=== PATIENT | male | born 1990 | race Caucasian/White ===

== ENCOUNTER 2023-03-16 13:51 | Emergency (ER) | payer OTHER, SELFPAY ==
[2023-03-16 14:00] VITALS: BP 123/73; PULSE 93; RESP 16; TEMP 36.3; O2SAT 97; BMI 25.1
--- NOTE | 2023-03-16 16:15 | ED_ITS ---
HPI - General Adult General Chief complaint: Laceration/Wound Stated complaint: Lac L pinky Time Seen by Provider: 03/16/23 15:58 Source: patient Mode of arrival: ambulatory Limitations: no limitations History of Present Illness HPI narrative: 33-year-old male coming in today with a laceration to his left pinky finger that occurred when he was cutting meat with a knife. Occurred approximally 2 hours ago. Denies any other injury. Unsure of his last tetanus shot. Related Data Home Medications Medication Instructions Recorded Confirmed No Known Home Medications 03/16/23 03/16/23 Allergies Allergy/AdvReac Type Severity Reaction Status Date / Time No Known Drug Allergies Allergy Verified 03/16/23 13:59 Review of Systems Status of ROS: Reports: 6 or more systems reviewed and unremarkable except as noted in History and below Exam Narrative: Exam Narrative: Well-nourished well-developed patient in no acute distress. Alert and oriented. Answers questions appropriately. Mood and affect are appropriate. Thoughts are goal oriented and rational. No tangential or magical thinking noted. Patient speaks in full sentences without needing to catch his breath. HEENT: Normocephalic atraumatic. Pupils are equally round reactive to light. Extraocular muscles are intact. Conjunctivae are moist without any icterus no mary alice. Moist mucous membranes. Extremities: Patient has approximately a 1 and 1/2 cm laceration to the dorsal surface of the base of the left 5th digit. Laceration extends through the skin is not penetrate through the subcutaneous tissue. Skin: Well perfused without any obvious rashes. Const: Vital Signs, click to edit/add: Vital Signs - 24 hr 03/16/23 14:00 Temperature 97.4 F L Pulse Rate [Right Pulse Oximeter] 93 Respiratory Rate 16 Blood Pressure [Ri ght Upper Arm] 123/73 Pulse Oximetry 97 Oxygen Delivery Me thod Room Air Course Course Hospital Course: Area of laceration was anesthetized with lidocaine and wound was clean with again cleansed and explored. Four sutures with 4 0 Ethilon were placed without difficulty and good skin approximation. Vital Signs Vital signs: Initial Vital Signs Temperature 97.4 F L 03/16/23 14:00 Temperature Source Temporal Artery Scan 03/16/23 14:00 Pulse Rate 93 03/16/23 14:00 Pulse Rhythm Regular 03/16/23 14:00 Respiratory Rate 16 03/16/23 14:00 Blood Pressure 123/73 03/16/23 14:00 Blood Pressure Mean 89 03/16/23 14:00 Blood Pressure Position Sitting 03/16/23 14:00 Pulse Oximetry 97 03/16/23 14:00 Oxygen Delivery Method Room Air 03/16/23 14:00 Vital Signs Temperature 97.4 F L 03/16/23 14:00 Pulse Rate 93 03/16/23 14:00 Respiratory Rate 16 03/16/23 14:00 Blood Pressure 123/73 03/16/23 14:00 Pulse Oximetry 97 03/16/23 14:00 Oxygen Delivery Method Room Air 03/16/23 14:00 Temperature 97.4 F L 03/16/23 14:00 Pulse Rate 93 03/16/23 14:00 Respiratory Rate 16 03/16/23 14:00 Blood Pressure 123/73 03/16/23 14:00 Pulse Oximetry 97 03/16/23 14:00 Oxygen Delivery Method Room Air 03/16/23 14:00 Medical Decision Making MDM Narrative Medical decision making narrative: 33-year-old male laceration to the 5th digit treated per above. We discussed wound hygiene, signs and symptoms of infections, reasons to return for follow-up and suture removal in approximately 1 week. Patient had no other questions Discharge Plan Discharge Clinical Impression: Laceration Patient Disposition: Home, Self-Care Condition: Improved Additional Instructions: Keep finger clean and dry. Okay to shower but do not soak the finger such as swimming taking bath or doing the dishes. Suture should be removed with your primary care provider in approximately 1 week. Return to the ER if you develop redness of the finger or draining of pus. Prescriptions: No Action No Known Home Medications Stand Alone Forms: [facility] Info Instructions
[2023-03-16] MEDS: TETANUS/DIPHTH/PERTUSSIS 0.5 ML SYRINGE IM (16:53)
== END 2023-03-16 16:59 | disposition home or self-care (01) ==
LOC: ED 16:29
PROVIDERS: Emergency Provider Family Medicine
DX: S61.217A Laceration without foreign body of left little finger without damage to nail, initial encounter (principal); W26.0XXA Contact with knife, initial encounter
CPT/HCPCS: 12001; 90471; 90715; 99283; 99284

== ENCOUNTER 2023-06-12 00:49 | Emergency (ER) | payer MEDICAID, SELFPAY ==
[2023-06-12 01:12] VITALS: BP 139/87; PULSE 76; RESP 16; TEMP 36.3; O2SAT 95; BMI 25.2
--- NOTE | 2023-06-12 02:10 | CRLHL7_ITS ---
For Patients: As a result of the Cures Act, medical imaging exams and procedure reports are released immediately into your electronic medical record. You may view this report before your referring provider. If you have questions, please contact your health care provider. INDICATION: Cough and chest pain. TECHNIQUE: Chest 2 views. COMPARISON: None. FINDINGS: Cardiovascular and mediastinum: Heart size and vasculature are normal in caliber and appearance. Lungs and pleural spaces: Lungs are clear. No sign of infiltrate or mass. No sign of pleural effusion. No pneumothorax. Bones and soft tissues: No significant findings. IMPRESSION: No acute or significant findings. Dictated by Devyn Matos MD @ 06/12/2023 2:30:19 AM (Electronically Signed)
--- NOTE | 2023-06-12 02:17 | ED_ITS ---
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 Present upon awakening, located in the left anterior deeper chest area. Accompanied by a feeling of racing heart though none has been documented on vital signs here. Tightness. Worse with laying on left side. Nonexertional, constant. It is slightly worse with palpation and with taking a deep breath. No history of DVT or PE. No history of anticoagulant use. No shortness of breath, nausea, trauma. No changes to the skin, itching or burning. Has not tried taking any medication to help with his symptoms. No neurological changes. No prior history of similar symptoms. On specific questioning, does admit to increased stress and wonders if it could be related. Past medical history benign per his report. No major long-term health problems. Nonsmoker, no allergies. ROS notable for the chest symptoms as described above only, otherwise denies times 12 systems. Related Data Previous Rx's Medication Instructions Recorded hydroxyzine pamoate 25 mg capsule 25 mg PO BID PRN anxiety #30 caps 06/12/23 (Vistaril) Allergies Allergy/AdvReac Type Severity Reaction Status Date / Time No Known Drug Allergies Allergy Verified 03/16/23 13:59 [facility] Social History Non-prescribed substance use: denies use Exam Const: Vital Signs, click to edit/add: Vital Signs - 24 hr 06/12/23 01:12 Temperature 97.4 F L Pulse Rate [Left P ulse Oximeter] 76 Respiratory Rate 16 Blood Pressure [Le ft Upper Arm] 139/87 Pulse Oximetry 95 Oxygen Delivery Me thod Room Air Documenting provider has reviewed patient's vital signs: yes General appearance: well kempt Other: Mildly anxious but answers questions appropriately. No distress. HENMT: Common normals: normocephalic and head/scalp atraumatic Head and scalp: normocephalic and atraumatic Face and sinus: normal facial exam Mouth: oral and palatal mucosa normal Throat: posterior oropharynx normal Eye: Common normals: conjunctivae normal General eye: normal appearance of both eyes Conjunctiva: conjunctiva(e) normal Neck & C-Spine: Common normals: full ROM and no lymphadenopathy Chest: Common normals: inspection of chest normal Other: Tenderness can somewhat be reproduced with palpation of 2nd and 3rd sternal costal joints. Resp: Common normals: normal respiratory effort and clear to auscultation bilaterally Effort & inspection: able to speak in complete sentences Auscultation: clear to auscultation bilaterally Cardio: Common normals: regular rate, regular rhythm, S1 normal heart sound and no murmurs Rate: regular rate Rhythm: regular rhythm Heart sounds: S1 normal GI: Common normals: Normal to inspection, nondistended, normoactive bowel sounds present, soft to palpation, non-tender, no hepatosplenomegaly and no masses Palpation: soft and no hepatosplenomegaly : Common normals: no CVA tenderness Bladder/kidney exam: no CVA tenderness Back & Pelvis: Common normals: no CVA tenderness and thoracic and lumbar spine normal to inspection Extremity: Common normals: normal to inspection and no pedal edema Neuro: Speech: speech normal Gait (neuro): normal gait Motor exam: no movement abnormalities noted Psych: Appearance: well kempt Attitude: engaged Insight: insight good Judgement: judgment good Skin: Common normals: no rashes or lesions noted General skin exam: no rashes or lesions noted Course Course ED Course: Vital signs reviewed, stable. Blood pressure even improves during his time in the ED. Chest pain is somewhat reproducible with palpation though not entirely. Suspect musculoskeletal etiology. Recommend Toradol 15 mg IV x1, Vistaril 25 mg p.o. x1. Basic labs including troponin, EKG, chest x-ray, D-dimer, metabolic panel and CBC with CRP. Await findings. Unlikely to need serial troponins due to duration of symptoms being longer than 6 hours. Reevaluation(s) Time of Reevaluation #1: 02:55 Reevaluation #1: Symptoms completely resolved with Toradol and Vistaril. All lab findings and x- ray findings discussed with patient. Suspect musculoskeletal versus anxiety cause. He was reassured by the findings. All questions answered. Discussed [id number] Tylenol and ibuprofen as needed for discomfort. I do think anxiety is a factor and he was agreeable to a trial of Vistaril at home 25 mg up to b.i.d. p.r.n.. He will follow-up with his primary care provider if typical anginal symptoms exist which were discussed. Utility Operator used. If he is feeling more anxious and is having symptoms twice weekly or more, he should follow up with his primary care doctor to discuss more long-term management of this condition as well. Vital Signs Vital signs: Initial Vital Signs Temperature 97.4 F L 06/12/23 01:12 Temperature Source Temporal Artery Scan 06/12/23 01:12 Pulse Rate 76 06/12/23 01:12 Pulse Rhythm Regular 06/12/23 01:12 Respiratory Rate 16 06/12/23 01:12 Blood Pressure 139/87 06/12/23 01:12 Blood Pressure Mean 104 06/12/23 01:12 Blood Pressure Position Semi-Fowlers 06/12/23 01:12 Pulse Oximetry 95 06/12/23 01:12 Oxygen Delivery Method Room Air 06/12/23 01:12 Vital Signs Temperature 97.4 F L 06/12/23 01:12 Pulse Rate 76 06/12/23 01:12 Respiratory Rate 16 06/12/23 01:12 Blood Pressure 139/87 06/12/23 01:12 Pulse Oximetry 95 06/12/23 01:12 Oxygen Delivery Method Room Air 06/12/23 01:12 Temperature 97.4 F L 06/12/23 01:12 Pulse Rate 76 06/12/23 01:12 Respiratory Rate 16 06/12/23 01:12 Blood Pressure 139/87 06/12/23 01:12 Pulse Oximetry 95 06/12/23 01:12 Oxygen Delivery Method Room Air 06/12/23 01:12 Medical Decision Making Lab Data Lab results reviewed: Yes I reviewed the patient's lab results Lab results narrative: Completely normal labs Labs: Lab Results 06/12/23 Range/Units 01:46 WBC 10.23 (4.50-11.00) K/uL RBC 5.02 (4.30-5.90) m/uL Hgb 14.2 (13.5-17.5) gm/dL Hct 42.8 (37.0-53.0) % MCV 85 (80-100) fL MCH 28 (26-34) pg MCHC 33 (32-36) gm/dL RDW Coeff of Ran 12.0 (11.5-15.5) % Plt Count 374 (140-440) K/uL Neut % (Auto) 46.9 (42.0-72.0) % Lymph % (Auto) 39.5 (20-44) % Gage % (Auto) 7.9 (0.0-11.0) % Eos % (Auto) 4.8 (0.0-7.0) % Baso % (Auto) 0.8 (0.0-3.0) % Neut # (Auto) 4.80 (1.7-7.0) K/uL Lymph # (Auto) 4.04 H (0.90-2.90) K/uL Gage # (Auto) 0.80 (0.00-0.90) K/UL Eos # (Auto) 0.49 (0.00-0.50) K/uL Baso # (Auto) 0.08 (0.00-0.30) K/uL Abs Immat Gran (auto) 0.01 (0.00-0.30) K/uL Imm/Tot Granulo (auto) 0.1 % D-Dimer Quant (PE/DVT) < 0.27 (0.00-0.50) ug/ml Sodium 137 (135-149) mmol/L Potassium 3.6 (3.6-5.1) mmol/L Chloride 103 (96-114) mmol/L Carbon Dioxide 23 (20-32) mmol/L Anion Gap 11 (7-15) mEq/L BUN 18 (5-24) mg/dL Creatinine 0.7 (0.5-1.5) mg/dL Estimated Creat Clear 156.43 Estimated GFR 126 ml/min Glucose 101 (60-115) mg/dL Calcium 9.3 (8.4-10.6) mg/dL C-Reactive Protein < 0.5 L (0.5-1.0) mg/dL POC Troponin I 0.00 L (0.01-0.04) ng/ml Imaging Data Chest x-ray: Attestation: I have reviewed the pertinent imaging results. My impression: Normal chest x-ray Radiologist's impression: IMPRESSION: No acute or significant findings. Dictated by Devyn Matos MD @ 06/12/2023 2:30:19 AM ECG Data Attestation: I personally reviewed and interpreted this ECG as follows: Prior ECG tracings: not available for review Interpretation: Normal sinus rhythm, rate 74. Normal axis. No significant ST or T-wave abnormalities. Good R-wave progression. Normal EKG. Discharge Plan Discharge Clinical Impression: Anxiety, Chest pain, non-cardiac Patient Disposition: Home, Self-Care Condition: Improved Instructions: Noncardiac Chest Pain (ED) Additional Instructions: As we discussed, your chest pain does not seem related to any problems with the heart. I do think it is mostly related to stress, anxiety or a musculoskeletal type problem. You did seem to benefit from the ibuprofen and Vistaril which is an antianxiety medicine that you are given in the emergency department. I would recommend that you have a supply of the Vistaril to take at home if your symptoms return. You may also use Tylenol 1000 mg every 6 hours and or ibuprofen 600 mg every 6 hours for pain. But if your feeling very anxious with racing heart and her having that chest tightness, the cause is most likely anxiety and Vistaril, also known as hydroxyzine, would be better. If you have symptoms more than a couple of times per week or if they are worsening on exertion, you should make a follow-up appointment with your primary care provider. You may resume all typical work and school activities with no restrictions. Activity Level: No Restrictions Discharge Diet: Regular Prescriptions: New hydroxyzine pamoate [Vistaril] 25 mg capsule 25 mg PO BID PRN (Reason: anxiety) Qty: 30 0RF Follow Up/Referrals: Provider,Not a Local [Primary Care Provider] - Stand Alone Forms: [facility] Info Instructions
[2023-06-12 02:22] LABS: Basophils Absolute Auto 0.08 K/uL (0.00-0.30); Basophils Percent Auto 0.8 % (0.0-3.0); Chloride* 103 mmol/L (96-114); Eosinophils Absolute Auto 0.49 K/uL (0.00-0.50); Eosinophils Percent Auto 4.8 % (0.0-7.0); Hematocrit 42.8 % (37.0-53.0); Hemoglobin* 14.2 gm/dL (13.5-17.5); Immature Granulocytes Abs Auto 0.01 K/uL (0.00-0.30); Immature Granulocytes Pct Auto 0.1 %; Lymphocytes Absolute Auto 4.04 K/uL (0.90-2.90); Lymphocytes Percent Auto 39.5 % (20-44); Mean Corpuscular HGB Conc 33 gm/dL (32-36); Mean Corpuscular Hemoglobin 28 pg (26-34); Mean Corpuscular Volume 85 fL (80-100); Monocytes Percent Auto 7.9 % (0.0-11.0); Neutrophils Percent Auto 46.9 % (42.0-72.0); Platelet Count* 374 K/uL (140-440); Potassium* 3.6 mmol/L (3.6-5.1); Red Blood Count 5.02 m/uL (4.30-5.90); Sodium* 137 mmol/L (135-149); White Blood Count* 10.23 K/uL (4.50-11.00)
[2023-06-12 02:23] LABS: Slide Review Reflex No
[2023-06-12 02:25] LABS: Creatinine* 0.7 mg/dL (0.5-1.5); Est. Creatinine Clearance* 156.43; Estimated Glomerular Filt Rate 126 ml/min
[2023-06-12 02:26] LABS: Anion Gap 11 mEq/L (7-15); Blood Urea Nitrogen* 18 mg/dL (5-24); Calcium* 9.3 mg/dL (8.4-10.6); Carbon Dioxide* 23 mmol/L (20-32); Glucose* 101 mg/dL (60-115)
[2023-06-12 02:27] LABS: D Dimer Quantitative* < 0.27 ug/ml (0.00-0.50)
[2023-06-12] MEDS: hydrOXYzine pamoate 25 MG CAPSULE PO (02:27)
[2023-06-12] MEDS: KETOROLAC 15 MG/ML inj IVP (02:27)
[2023-06-12 02:30] LABS: C Reactive Protein* < 0.5 mg/dL (0.5-1.0)
--- NOTE | 2023-06-12 04:36 | ED.NURSE ---
vital signs deleted by vehicle maintenance technician from machine prior to documentation.
== END 2023-06-12 03:16 | disposition home or self-care (01) ==
LOC: ED 03:09
PROVIDERS: Emergency Provider Family Medicine
DX: R07.9 Chest pain, unspecified (principal); F41.9 Anxiety disorder, unspecified
CPT/HCPCS: 36415; 71046; 80048; 84484; 85025; 85379; 86140; 93005; 96374; 99284; 99285; A9270; J1885

== ENCOUNTER 2023-12-18 16:05 | Emergency (ER) | payer MEDICAID, SELFPAY ==
[2023-12-18 16:10] VITALS: BP 115/71; PULSE 75; RESP 16; TEMP 36.2; O2SAT 98; BMI 25.0
--- NOTE | 2023-12-18 16:18 | ED.ABDPAIN ---
HPI - Abdominal Pain General Time Seen by Provider: 16:19 Date Seen: 12/18/23 Chief Complaint: Abdominal Pain Stated Complaint: abdominal pain Time Seen by Provider: 12/18/23 16:18 Source: patient, RN notes reviewed and interpreter for the deaf Mode of arrival: ambulatory Limitations: no limitations History of Present Illness HPI narrative: Sotero is a very pleasant healthy 33-year-old gentleman with a history of anxiety who comes to the emergency room with abdominal pain. Patient notes the onset of epigastric abdominal pain 5 days ago that has now increased and also has caused pain in the mid and lower abdomen in the midline. He notes no diarrhea, blood in his stool or constipation. Eating definitely increases his discomfort. It does not appear to be any certain foods that does this. He has not had fever chills or weight loss. He has not taken any medication for the discomfort. No previous history of gallbladder issues ulcer. No family history of ulcerative colitis or bowel diseases. He has had no previous abdominal surgeries. Denies hematuria or dysuria. Movement seems to increases discomfort. Related Data Previous Rx's Medication Instructions Recorded hydroxyzine pamoate 25 mg capsule 25 mg PO BID PRN anxiety #30 caps 06/12/23 (Vistaril) Allergies Allergy/AdvReac Type Severity Reaction Status Date / Time No Known Drug Allergies Allergy Verified 03/16/23 13:59 Review of Systems Status of ROS Reports: 10 or more systems reviewed and unremarkable except as noted in History and below Const Denies: fever or chills ENMT Denies: throat pain, neck pain, throat swelling, difficulty swallowing, swelling of lips/tongue or nasal congestion Cardio Denies: chest pain, palpitations, swelling of feet/ankles, lightheadedness or shortness of breath with exertion Resp Denies: shortness of breath or cough GI Reports: abdominal pain; Denies: nausea, vomiting, diarrhea, constipation, difficulty swallowing or blood in stool Denies: painful urination or urinary frequency Musculo Denies: back pain, neck pain or extremity pain Integ/Breast Denies: rash Neuro Denies: headache Psych Reports: anxiety Endo Denies: excessive urination Allergy/Immuno Denies: throat swelling PFSH PFSH Social History Smoking Status: Former smoker Do you use any of these nicotine containing products: None Second hand tobacco smoke exposure: No How often do you have a drink containing alcohol: monthly or less How many standard drinks containing alcohol do you have on a typical day: 1 or 2 How often do you have six or more drinks on one occasion: Never AUDIT-C Alcohol total score: 1 Non-prescribed substance use: denies use service: No Exam Narrative: Exam Narrative: Alert and oriented. Nontoxic in appearance. Some slow movement to guarded movement with movement from bed to sitting position. EOM is full. Neck is supple. Head atraumatic normocephalic. Oral cavity with moist mucous membranes. Lungs clear to auscultation. Heart with regular rate and rhythm and no unusual heart sounds. Abdomen is soft. Tenderness noted in the epigastrium right upper quadrant no rebound tenderness. To a lesser extent also tenderness in the suprapubic area. No peritoneal signs. Lower extremities without edema. Able to move all extremities. No evidence of a pulsating mass on abdominal exam. Const: Vital Signs, click to edit/add: Vital Signs - 24 hr 12/18/23 16:10 Temperature 97.1 F L Pulse Rate [Pulse Oximeter] 75 Respiratory Rate 16 Blood Pressure [Ri ght Upper Arm] 115/71 Pulse Oximetry 98 Oxygen Delivery Me thod Room Air Documenting provider has reviewed patient's vital signs: yes Course Course ED Course: Differential diagnosis includes but is not limited to constipation, gastritis, biliary colic, gastric or duodenal ulcer, gastroenteritis, mesenteric adenitis, anxiety. Will place IV and give 1 L of normal saline, Toradol 15 mg IV for discomfort. Will check CBC, comprehensive panel, lipase, CRP as well as urinalysis. Flat plate and upright. Reevaluation(s) Reevaluation #1: Patient continues to be stable. Given his discomfort will proceed with ultrasound right upper quadrant. Reevaluation #2: Patient notes that Toradol did help his discomfort. When the test engineering technician entered his room to do the abdominal ultrasound he stated that he needed to leave and apple picker his . Nursing staff did explain to him that this visit would be closed out but he was more than welcome to return. We did state that that would be a 2nd visit. He does sign AMA. Suggested to follow up with his primary tomorrow. Vital Signs Vital signs: Initial Vital Signs Temperature 97.1 F L 12/18/23 16:10 Temperature Source Temporal Artery Scan 12/18/23 16:10 Pulse Rate 75 12/18/23 16:10 Pulse Rhythm Regular 12/18/23 16:10 Respiratory Rate 16 12/18/23 16:10 Blood Pressure 115/71 12/18/23 16:10 Blood Pressure Mean 85 12/18/23 16:10 Blood Pressure Position Sitting 12/18/23 16:10 Pulse Oximetry 98 12/18/23 16:10 Oxygen Delivery Method Room Air 12/18/23 16:10 Vital Signs Temperature 97.1 F L 12/18/23 16:10 Pulse Rate 75 12/18/23 16:10 Respiratory Rate 16 12/18/23 16:10 Blood Pressure 115/71 12/18/23 16:10 Pulse Oximetry 98 12/18/23 16:10 Oxygen Delivery Method Room Air 12/18/23 16:10 Temperature 97.1 F L 12/18/23 16:10 Pulse Rate 75 12/18/23 16:10 Respiratory Rate 16 12/18/23 16:10 Blood Pressure 115/71 12/18/23 16:10 Pulse Oximetry 98 12/18/23 16:10 Oxygen Delivery Method Room Air 12/18/23 16:10 Medications Administered Medications: Discontinued Medications Generic Name Dose Route Start Last Admin Trade Name Freq PRN Reason Stop Dose Admin Sodium Chloride 1,000 mls @ 1,000 mls/hr 12/18/23 16:39 12/18/23 17:12 0.9 % Sodium Chloride 1000 Ml IV 12/18/23 17:38 1,000 mls/hr .Q1H ROLAND Administration Ketorolac Tromethamine 15 mg 12/18/23 16:39 12/18/23 17:12 Ketorolac 15 Mg/Ml Inj IVP 12/18/23 16:40 15 mg ONCE ONE Administration MDM - Abdominal Pain MDM Narrative Medical decision making narrative: 1. Abdominal pain-patient departs AMA prior to discussion of laboratory values and x-ray. CBC has returned with a normal white count. 2. Disposition-AMA at this time. Nursing staff did educate on primary care. Patient states he may come back here Monday or Monday for the ultrasound. He was feeling better upon departure. Lab Data Attestation: I reviewed the patient's lab results. Labs: Lab Results 12/18/23 Range/Units 17:14 WBC 9.39 (4.50-11.00) K/uL RBC 4.92 (4.30-5.90) m/uL Hgb 13.9 (13.5-17.5) gm/dL Hct 42.3 (37.0-53.0) % MCV 86 (80-100) fL MCH 28 (26-34) pg MCHC 33 (32-36) gm/dL RDW Coeff of Ran 11.9 (11.5-15.5) % Plt Count 383 (140-440) K/uL Neut % (Auto) 57.7 (42.0-72.0) % Lymph % (Auto) 28.6 (20-44) % Gates % (Auto) 8.5 (0.0-11.0) % Eos % (Auto) 4.3 (0.0-7.0) % Baso % (Auto) 0.7 (0.0-3.0) % Neut # (Auto) 5.41 (1.7-7.0) K/uL Lymph # (Auto) 2.69 (0.90-2.90) K/uL Gates # (Auto) 0.80 (0.00-0.90) K/UL Eos # (Auto) 0.40 (0.00-0.50) K/uL Baso # (Auto) 0.07 (0.00-0.30) K/uL Abs Immat Gran (auto) 0.02 (0.00-0.30) K/uL Imm/Tot Granulo (auto) 0.2 % Imaging Data Abdominal x-ray: Attestation: I have reviewed the pertinent imaging results. Radiologist's impression: Nonspecific, nonobstructive bowel gas pattern. Large fecal burden is noted throughout the visualized colon. Overall paucity of small bowel gas noted. No evidence of pneumoperitoneum. Visualized lung bases are clear. No acute osseous abnormality Discharge Plan Discharge Prescriptions: No Action hydroxyzine pamoate [Vistaril] 25 mg capsule 25 mg PO BID PRN (Reason: anxiety) Qty: 30 0RF Follow Up/Referrals: Provider,Not a Local [Primary Care Provider] -
--- NOTE | 2023-12-18 16:39 | XR_ITS ---
Patient: NAUN POPE Facility:?[facility] Patient ID:?[id number] Site Patient ID:?[id number]. Site :?1990 Study:?XRay-Abdomen 2V-12/18/2023 5:07:07 PM Ordering Physician:RAHEL Final Report: INDICATION: Abdominal pain. TECHNIQUE: Abdomen and pelvis 2 view(s) COMPARISON: None. FINDINGS/IMPRESSION: Nonspecific, nonobstructive bowel gas pattern. Large fecal burden is noted throughout the visualized colon. Overall paucity of small bowel gas noted. No evidence of pneumoperitoneum. Visualized lung bases are clear. No acute osseous abnormality. Dictated by Daniela Ayala MD @ 12/18/2023 5:20:01 PM Signed by:?Daniela Ayala MD @12/18/2023 5:20:01 PM (Electronic Signature)
[2023-12-18] MEDS: KETOROLAC 15 MG/ML inj IVP (17:12)
[2023-12-18] MEDS: 0.9 % SODIUM CHLORIDE 1000 ml 1,000 ML IV (17:12)
[2023-12-18 17:35] LABS: Basophils Absolute Auto 0.07 K/uL (0.00-0.30); Basophils Percent Auto 0.7 % (0.0-3.0); Eosinophils Percent Auto 4.3 % (0.0-7.0); Hematocrit 42.3 % (37.0-53.0); Hemoglobin* 13.9 gm/dL (13.5-17.5); Immature Granulocytes Abs Auto 0.02 K/uL (0.00-0.30); Immature Granulocytes Pct Auto 0.2 %; Lymphocytes Absolute Auto 2.69 K/uL (0.90-2.90); Lymphocytes Percent Auto 28.6 % (20-44); Mean Corpuscular HGB Conc 33 gm/dL (32-36); Mean Corpuscular Hemoglobin 28 pg (26-34); Mean Corpuscular Volume 86 fL (80-100); Monocytes Percent Auto 8.5 % (0.0-11.0); Neutrophils Absolute Auto 5.41 K/uL (1.7-7.0); Neutrophils Percent Auto 57.7 % (42.0-72.0); Platelet Count* 383 K/uL (140-440); RDW Coefficient of Variation % 11.9 % (11.5-15.5); Red Blood Count 4.92 m/uL (4.30-5.90); White Blood Count* 9.39 K/uL (4.50-11.00)
[2023-12-18 17:47] LABS: Slide Review Reflex No
--- NOTE | 2023-12-18 17:47 | ED.NURSE ---
Pt left AMA, AMA form signed.
[2023-12-18 17:53] LABS: Albumin* 4.6 g/dL (3.3-5.0); Chloride* 102 mmol/L (96-114); Potassium* 3.8 mmol/L (3.6-5.1); Sodium* 137 mmol/L (135-149)
[2023-12-18 17:55] LABS: Bilirubin Total* 0.4 mg/dL (0.1-1.5); Creatinine* 0.6 mg/dL (0.5-1.5); Est. Creatinine Clearance* 222.75; Estimated Glomerular Filt Rate 132 ml/min
[2023-12-18 17:56] LABS: Alanine Aminotransferase* 53 U/L (4-50); Alkaline Phosphatase* 84 U/L (40-150); Anion Gap 8 mEq/L (7-15); Aspartate Amino Transferase* 31 U/L (12-35); Blood Urea Nitrogen* 11 mg/dL (5-24); Carbon Dioxide* 27 mmol/L (20-32); Glucose* 89 mg/dL (60-115); Lipase* 42 U/L (23-300); Total Protein* 8.2 g/dL (6.0-8.3)
[2023-12-18 17:57] LABS: Calcium* 9.1 mg/dL (8.4-10.6)
[2023-12-18 17:59] LABS: C Reactive Protein* 0.7 mg/dL (0.5-1.0)
== END 2023-12-18 17:50 | disposition home or self-care (01) ==
PROVIDERS: Emergency Provider Family Medicine
DX: R10.9 Unspecified abdominal pain (principal); Z53.29 Procedure and treatment not carried out because of patient's decision for other reasons
CPT/HCPCS: 36415; 74019; 80053; 83690; 85025; 86140; 96374; 99283; 99284; J1885; J7030

== ENCOUNTER 2023-12-19 12:40 | Emergency (ER) | payer MEDICAID, SELFPAY ==
[2023-12-19 12:50] VITALS: BP 120/75; PULSE 80; RESP 18; TEMP 36.6; O2SAT 98; BMI 31.1
--- NOTE | 2023-12-19 13:02 | US_ITS ---
Patient: NAUN POPE Facility:?[facility] Patient ID:?[id number] Site Patient ID:?[id number]. Site :?1990 Study:?US-Abdomen RUQ-12/19/2023 2:06:02 PM Ordering Physician:KINDRA ADEN M.D. Final Report: INDICATION: Right upper quadrant abdomen pain TECHNIQUE: Ultrasound abdomen limited. Sonographic images of the right upper quadrant were obtained using kaminski-scale and color Doppler images. COMPARISON: None FINDINGS: Liver: Mildly increased in echogenicity without focal lesion. No masses. No intrahepatic biliary dilatation. Gallbladder: No stones or sludge. Normal wall thickness. No pericholecystic fluid. Common bile duct: 3 mm. Pancreas: Mostly obscured by bowel gas without gross abnormality. Right kidney: Normal in size. Normal echotexture and cortex. No masses, stones, or hydronephrosis. Vasculature: Proximal abdominal aorta and IVC are normal. IMPRESSION: 1. No evidence of cholelithiasis or cholecystitis. 2. Mild hepatic steatosis. Dictated by Aman Dowling MD @ 12/19/2023 2:13:29 PM Signed by:?Aman Dowling MD @12/19/2023 2:13:29 PM (Electronic Signature)
--- NOTE | 2023-12-19 13:03 | ED.GENADULT ---
HPI - General Adult General Date Seen: 12/19/23 Chief complaint: Abdominal Pain Stated complaint: adominal pain Time Seen by Provider: 12/19/23 12:57 Source: patient, RN notes reviewed, old records reviewed and interpreter and translator Mode of arrival: ambulatory Limitations: language barrier History of Present Illness HPI narrative: Patient is a 33-year-old, generally healthy young man with 5 days of abdominal pain. 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 He returns to complete evaluation. He notes that pain is primarily epigastric down to above the umbilicus. It is there all the time, waxes and wanes a bit, there are times where it is fairly mild and then it will get worse. He does feel that it is worse with eating. He does not take any medications, says that none recommended yesterday. He denies any prior medical history, does not smoke, drinks occasional beer. No abdominal surgeries. Prior to 5 days ago did not have problems with abdominal pain. He has not had any nausea, vomiting, diarrhea, black or bloody stools, fevers. He is able to eat and drink without difficulty aside from the fact that he feels it worsens his pain. Related Data Previous Rx's Medication Instructions Recorded hydroxyzine pamoate 25 mg capsule 25 mg PO BID PRN anxiety #30 caps 06/12/23 (Vistaril) omeprazole 40 mg capsule,delayed 40 mg PO DAILY #30 caps 12/19/23 release Allergies Allergy/AdvReac Type Severity Reaction Status Date / Time No Known Drug Allergies Allergy Verified 03/16/23 13:59 Review of Systems Status of ROS: Reports: 10 or more systems reviewed and unremarkable except as noted in History and below [facility] Social History Smoking Status: Former smoker Do you use any of these nicotine containing products: None Second hand tobacco smoke exposure: No How often do you have a drink containing alcohol: monthly or less How many standard drinks containing alcohol do you have on a typical day: 1 or 2 How often do you have six or more drinks on one occasion: Never AUDIT-C Alcohol total score: 1 Non-prescribed substance use: denies use service: No Exam Narrative: Exam Narrative: Vital signs as noted above. In general, an alert, well-appearing patient. Head: Normocephalic, atraumatic. Eyes: Pupils are equal reactive. Extraocular movements are full. Conjunctivae are normal. ENT: Mucous membranes are moist. Throat is normal. Neck: Supple without lymphadenopathy. Heart: Regular rate and rhythm. No murmur or rub. Lungs: Clear bilaterally. No increased work of breathing, crackles or wheezes. Abdomen: Soft and nondistended. Some tenderness fairly diffusely, greatest in the epigastrium. No rebound guarding or rigidity. Negative Osullivan sign. Extremities: Well perfused. No edema. No calf tenderness. Pulses intact. Neurologic: Patient is alert and oriented to person and place. Speech is fluent. Face is symmetric. Moves all extremities equally. Affect: Normal. Skin: Warm and dry. Well perfused. Const: Vital Signs, click to edit/add: Vital Signs - 24 hr 12/19/23 12:50 Temperature 97.8 F Pulse Rate [Right Pulse Oximeter] 80 Respiratory Rate 18 Blood Pressure [Ri ght Upper Arm] 120/75 Pulse Oximetry 98 Oxygen Delivery Me thod Room Air Documenting provider has reviewed patient's vital signs: yes Course Course ED Course: I have reviewed his note from yesterday, he had a normal CBC, normal metabolic panel, LFTs notable only for an ALT of 53. Alk-phos and bili, AST all normal. Lipase was normal. CRP was 0.7. Presents with epigastric/slightly generalized abdominal pain for 5 days without other significant symptoms and with a benign abdominal exam. Vital signs are normal today. I have ordered the right upper quadrant ultrasound which was ordered yesterday but not done. Given normal labs yesterday and benign exam, I think repeating those is not necessary at this time. Will see how the ultrasound looks. Consider trial of PPI if that is negative. Ultrasound is entirely negative. Would recommend a trial of omeprazole, primary care follow-up. He does not have a clinic but the interpreter and translator has given him information [facility] so that he can establish with primary care. Should follow-up to assess improvement or not on the PPI. Return any time for significant worsening such as vomiting, high fevers, bloody stools etcetera. Vital Signs Vital signs: Initial Vital Signs Temperature 97.8 F 12/19/23 12:50 Temperature Source Temporal Artery Scan 12/19/23 12:50 Pulse Rate 80 12/19/23 12:50 Respiratory Rate 18 12/19/23 12:50 Blood Pressure 120/75 12/19/23 12:50 Blood Pressure Mean 90 12/19/23 12:50 Blood Pressure Position Sitting 12/19/23 12:50 Pulse Oximetry 98 12/19/23 12:50 Oxygen Delivery Method Room Air 12/19/23 12:50 Vital Signs Temperature 97.8 F 12/19/23 12:50 Pulse Rate 80 12/19/23 12:50 Respiratory Rate 18 12/19/23 12:50 Blood Pressure 120/75 12/19/23 12:50 Pulse Oximetry 98 12/19/23 12:50 Oxygen Delivery Method Room Air 12/19/23 12:50 Temperature 97.8 F 12/19/23 12:50 Pulse Rate 80 12/19/23 12:50 Respiratory Rate 18 12/19/23 12:50 Blood Pressure 120/75 12/19/23 12:50 Pulse Oximetry 98 12/19/23 12:50 Oxygen Delivery Method Room Air 12/19/23 12:50 Discharge Plan Discharge Clinical Impression: Abdominal pain Patient Disposition: Home, Self-Care Condition: Stable Instructions: Abdominal Pain (ED) Additional Instructions: Bagley evaluaci?n en la kellie de emergencias no muestra cee causa espec?fica para bagley dolor abdominal. Todas las pruebas son normales, incluida la ecograf?a. Recomendar?a cee prueba de Prilosec, que es un medicamento para tratar la irritaci?n del revestimiento del est?becky, tambi?n llamada gastritis o enfermedad por reflujo gastroesof?gico. Le enviar? cee receta, tambi?n puede comprar namrata medicamento sin receta. Realice un seguimiento en la cl?german para volver a revisarlo en las pr?ximas 1-2 semanas. Regrese a la kellie de emergencias en cualquier momento para empeorar significativamente evaluation in the ER does not show a specific cause for your abdominal pain. Your tests are all normal, including your ultrasound. I would recommend a trial of Prilosec, which is a medication to treat irritation of the stomach lining also called gastritis, or gastroesophageal reflux disease. I will send a prescription for you, you can also buy this medicine [id number]. Please follow-up in clinic for recheck in the next 1-2 weeks. Return to the ER at any time for significant worsening such as high fevers, vomiting, bloody stools. Prescriptions: New omeprazole 40 mg capsule,delayed release(DR/EC) 40 mg PO DAILY Qty: 30 2RF No Action hydroxyzine pamoate [Vistaril] 25 mg capsule 25 mg PO BID PRN (Reason: anxiety) Qty: 30 0RF Follow Up/Referrals: Provider,Not a Local [Primary Care Provider] - Stand Alone Forms: [employer] Info Instructions
== END 2023-12-19 14:28 | disposition home or self-care (01) ==
PROVIDERS: Emergency Provider Emergency Medicine
DX: R10.9 Unspecified abdominal pain (principal)
CPT/HCPCS: 76705; 99284

== ENCOUNTER 2024-09-16 12:40 | Emergency (ER) | payer SELFPAY ==
[2024-09-16 13:38] VITALS: BP 143/94; PULSE 75; RESP 16; TEMP 37.5; O2SAT 100; BMI 31.3
--- NOTE | 2024-09-16 13:56 | ED.WOUNDLAC ---
HPI - Wound/Laceration General Chief Complaint: Laceration/Wound Stated Complaint: laceration - left arm Time Seen by Provider: 09/16/24 13:46 History of Present Illness HPI narrative: This 34-year-old male comes in with a laceration to his left forearm. He was at work using a knife and accidentally stabbed into his left forearm. He has a laceration that is approximately 6 cm long in the medial volar aspect of his left forearm. He has full range of motion of his fingers. His tetanus was updated a urine half ago. Related Data Previous Rx's ?Medication ?Instructions ?Recorded hydroxyzine pamoate 25 mg capsule 25 mg PO BID PRN anxiety #30 caps 06/12/23 (Vistaril) omeprazole 40 mg capsule,delayed 40 mg PO DAILY #30 caps 12/19/23 release ketorolac 10 mg tablet 10 mg PO Q8H 5 days #15 tabs 09/16/24 Allergies Allergy/AdvReac Type Severity Reaction Status Date / Time No Known Drug Allergies Allergy Verified 09/16/24 13:36 Review of Systems Status of ROS: Reports: 10 or more systems reviewed and unremarkable except as noted in History and below Narrative: Constitutional: No fevers, no weight gain or loss. Eyes: No discharge. No vision changes. HENT: No congestion, no sore throat, no ear pain. Cardiovascular: No chest pain, no palpitations. Respiratory: No shortness of breath, no wheezes, no cough. Gastrointestinal: No abdominal pain, no vomiting, no diarrhea. Genitourinary: No dysuria, no hematuria. Musculoskeletal: Normal range of motion. Left forearm injury as described above. Skin: No rashes, no pruritis. Neurological: No dizziness, weakness, sensory change, speech change. Endo/Heme/Allergies: No bruising or bleeding. No polydipsia. Pysch: no suicidality, no anxiety, no insomnia. All other systems reviewed and are negative. PFSH PFSH Social History Smoking Status: Former smoker Do you use any of these nicotine containing products: None Second hand tobacco smoke exposure: No How often do you have a drink containing alcohol: monthly or less How many standard drinks containing alcohol do you have on a typical day: 1 or 2 How often do you have six or more drinks on one occasion: Never AUDIT-C Alcohol total score: 1 Non-prescribed substance use: denies use service: No Exam Narrative: Exam Narrative: Constitutional: Well-developed, well-nourished, no acute distress. HEENT: Normocephalic, atraumatic. Neck: Normal range of motion. Nontender. Supple. Heart: Intact distal pulses. Lungs: No chest discomfort. No wheezes, rhonchi, or rales. Abdomen: Nontender. Back: Normal range of motion. Extremities: Normal range of motion. Left forearm has a 4 cm linear laceration. He has normal range of motion of his fingers and wrist and no altered sensation. Skin: Intact. No rash. Warm. No erythema or pallor. Neurologic: No altered sensation. No weakness. Alert and oriented. Psychiatric: No suicidality. No anxiety or depression. No insomnia. Nursing notes and vitals signs are reviewed. Const: Vital Signs, click to edit/add: Vital Signs - 24 hr 09/16/24 13:38 Temperature 99.5 F Pulse Rate [Pulse Oximeter] 75 Respiratory Rate 16 Blood Pressure [Ri ght Upper Arm] 143/94 H Pulse Oximetry 100 Oxygen Delivery Me thod Room Air Course Vital Signs Vital signs: Initial Vital Signs Temperature 99.5 F 09/16/24 13:38 Temperature Source Temporal Artery Scan 09/16/24 13:38 Pulse Rate 75 09/16/24 13:38 Pulse Rhythm Regular 09/16/24 13:38 Pulse Strength 3+ Normal 09/16/24 13:38 Respiratory Rate 16 09/16/24 13:38 Blood Pressure 143/94 H 09/16/24 13:38 Blood Pressure Mean 110 H 09/16/24 13:38 Blood Pressure Position Sitting 09/16/24 13:38 Pulse Oximetry 100 09/16/24 13:38 Oxygen Delivery Method Room Air 09/16/24 13:38 Vital Signs Temperature 99.5 F 09/16/24 13:38 Pulse Rate 75 09/16/24 13:38 Respiratory Rate 16 09/16/24 13:38 Blood Pressure 143/94 H 09/16/24 13:38 Pulse Oximetry 100 09/16/24 13:38 Oxygen Delivery Method Room Air 09/16/24 13:38 Temperature 99.5 F 09/16/24 13:38 Pulse Rate 75 09/16/24 13:38 Respiratory Rate 16 09/16/24 13:38 Blood Pressure 143/94 H 09/16/24 13:38 Pulse Oximetry 100 09/16/24 13:38 Oxygen Delivery Method Room Air 09/16/24 13:38 MDM - Wound/Laceration MDM Narrative Medical decision making narrative: This patient comes in with a laceration to his left forearm. He was describing some significant discomfort so I did initially bring pain relief by injecting 1% lidocaine with epinephrine. The wound was then cleansed and later I explored it to its base. He did have evidence of some muscle injury but no tendon dysfunction. I repaired the wound using 4.0 Ethilon sutures by placing 8 of them in interrupted fashion. Instructions regarding wound care were given including the need to return to clinic urgent care in 7-10 days for suture removal. He did receive a prescription for Toradol. Discharge Plan Discharge Clinical Impression: Laceration Patient Disposition: Home, Self-Care Condition: Improved Additional Instructions: Keep wound clean and dry. Increase activity as tolerated. Follow-up with clinic or urgent care in 7-10 days for suture removal. Prescriptions: New ketorolac 10 mg tablet 10 mg PO Q8H 5 Days Qty: 15 0RF No Action hydroxyzine pamoate [Vistaril] 25 mg capsule 25 mg PO BID PRN (Reason: anxiety) Qty: 30 0RF omeprazole 40 mg capsule,delayed release(DR/EC) 40 mg PO DAILY Qty: 30 2RF Follow Up/Referrals: Provider,Not a Local [Primary Care Provider] - Stand Alone Forms: Parents R People Info Instructions
== END 2024-09-16 14:45 | disposition home or self-care (01) ==
PROVIDERS: Emergency Provider Emergency Medicine Emergency Medical Services
DX: S51.812A Laceration without foreign body of left forearm, initial encounter (principal); W26.0XXA Contact with knife, initial encounter; Y99.0 Civilian activity done for income or pay
CPT/HCPCS: 12002; 99283; 99284